=== PATIENT | female | born 1950 | race Caucasian/White ===

== ENCOUNTER 2017-03-31 16:47 | Emergency (ER) | payer OTHER ==
[~2017-03-31] VITALS: Ht 160 cm; Wt 110.0 kg
[~2017-03-31 16:47] MED LIST: CARDECDMS PO; GLUCTAB; HYCOS PO; HYZA100T2 PO; LEVO.2 PO; SIMV5TAB32 PO; VITA400C28 PO; VITA500T10 PO; ZITH250T PO
[2017-03-31 17:06] VITALS: BP 159/78; PULSE 85; RESP 16; TEMP 97.7; O2SAT 96
[2017-03-31] MEDS ORDERED: LEVO.2 PO (17:29)
[2017-03-31] MEDS ORDERED: PANT20TA2 PO (17:29)
[2017-03-31] MEDS ORDERED: SIMV40TA PO (17:29)
[2017-03-31] MEDS ORDERED: HYZA50TA2 PO (17:29)
[2017-03-31] MEDS ORDERED: METF500T PO (17:29)
--- NOTE | 2017-03-31 17:49 | PD ---
HPI Chief Complaint: Musculoskeletal Complaint Time Seen by Provider: 17:42 Travel History International Travel<30 days: No Contact w/Intl Traveler<30days: No Traveled to known affect area: No History of Present Illness HPI The 66-year-old female presents emergency department for evaluation of bilateral hand pain. [place] she tri[place] on an electric cord falling forward onto outstretched hands. Patient has pain bilaterally in the palms and across the metacarpals. She denies paresthesias or weakness in the extremities. Patient reports pain with flexion of the fingers. Relieved with rest. Symptom severity mild. PFSH Past Medical History Cancer: Yes (THYROID CA) High Cholesterol: Yes Diabetes: Yes Patient Takes Glucophage: Yes (04-09-17 1200) Diminished Hearing: No Hiatal Hernia: Yes Hypertension: Yes Immunizations Current: Yes Tetanus Vaccination: < 5 Years Influenza Vaccination: Yes ?: Not Menopausal: Yes Past Surgical History Cholecystectomy: Yes Other Surgery: Yes (; THYROID REMOVED. BREAST REDUCTION) Social History Alcohol Use: No Tobacco Use: No (QUIT SMOKINGFEB) Substance Use: No Allergies-Medications (Allergen,Severity, Reaction): Coded Allergies: penicillin G (Unverified Allergy, Unknown, 03/31/17) Uncoded Allergies: MANGOES (Allergy, Severe, ANAPHALAXIS, 09/09/09) Reported Meds & Prescriptions Reported Meds & Active Scripts Active Reported Synthroid (Levothyroxine Sodium) 200 Mcg Tab 200 Mcg PO DAILY Simvastatin 40 Mg Tab 40 Mg PO HS Pantoprazole (Pantoprazole Sodium) 20 Mg Tab 20 Mg PO DAILY Hyzaar (Losartan-Hydrochlorothiazide) 50-12.5 Mg Tab 1 Tab PO DAILY Metformin (Metformin HCl) 500 Mg Tab 500 Mg PO TIDPC With meals Review of Systems Except as stated in HPI: all other systems reviewed are Neg Physical Exam Narrative GENERAL: Well-nourished, well-developed patient. SKIN: Focused skin assessment warm/dry. Abrasions to bilateral palms HEAD: Normocephalic. EYES: No scleral icterus. No injection or drainage. NECK: Supple, trachea midline. No JVD or lymphadenopathy. CARDIOVASCULAR: Regular rate and rhythm without murmurs, gallops, or rubs. RESPIRATORY: Breath sounds equal bilaterally. No accessory muscle use. GASTROINTESTINAL: Abdomen soft, non-tender, nondistended. MUSCULOSKELETAL: No cyanosis, or edema. Bilateral hands superficial abrasions to the palms. No snuffbox tenderness or wrist pain. She has tenderness over the metacarpals. Full flexion and extension of the fingers. Brisk cap refill. Data Data Last Documented VS Vital Signs Date Time Temp Pulse Resp B/P (MAP) Pulse Ox O2 Delivery O2 Flow Rate FiO2 03/31/17 17:06 97.7 85 16 159/78 (105) 96 Orders Orders Hand, Complete ([id number]) (03/31/17 ) Hand, Complete ([id number]) (03/31/17 ) MDM Medical Decision Making Medical Screen Exam Complete: Yes Emergency Medical Condition: Yes Differential Diagnosis Metacarpal fracture versus abrasions versus contusion Narrative Course 66-year-old female presents emergency department for evaluation of bilateral hand pain status post fall from standing position prior to arrival. Patient has superficial abrasions to palms. She has tenderness over the metacarpals. The extremities are neurovascularly intact. Bilateral hand x-rays ordered and pending. Bilateral hand x-rays are negative for fracture. Patient we put into a left wrist splint for comfort and support. Instructed to follow-up with her PCP. Take [id number] Tylenol or Motrin as needed for pain. Diagnosis Primary Impression: Contusion Qualified Codes: S60.229A - Contusion of unspecified hand, initial encounter Referrals: Primary Care Physician Additional Instructions: Take [id number] Tylenol or Motrin as needed for pain. Where they wrist splint as needed for comfort. Follow-up with her primary doctor. Disposition: 01 DISCHARGE HOME Condition: Stable Hollie German Mar 31, 2017 17:49
--- NOTE | 2017-03-31 18:38 | RADRPT ---
EXAM DATE/TIME: 03/31/2017 18:16 [facility] COMPARISON: No previous studies available for comparison. INDICATIONS : Fell on hands, pain across palm MEDICAL HISTORY : Diabetes mellitus type II. SURGICAL HISTORY : None. ENCOUNTER: Initial ACUITY: 1 day PAIN SCORE: 7/10 LOCATION: Left hand FINDINGS: Three view examination of the left hand demonstrates no soft tissue swelling, dislocation, or fractur e. The carpal bones appear intact. The interphalangeal and metacarpophalangeal joints are intact. Bony mineralization is normal. CONCLUSION: Negative exam. Edwin Nino MD on March 31, 2017 at 18:36 Board Certified Radiologist. This report was verified electronically.
--- NOTE | 2017-03-31 18:39 | RADRPT ---
EXAM DATE/TIME: 03/31/2017 18:21 [facility] COMPARISON: No previous studies available for comparison. INDICATIONS : Fell today on hands, pain across palm MEDICAL HISTORY : Diabetes mellitus type II. SURGICAL HISTORY : None. ENCOUNTER: Initial ACUITY: 1 day PAIN SCORE: 5/10 LOCATION: Right hand FINDINGS: Three view examination of the right hand demonstrates no soft tissue swelling, dislocation, or fractu re. The carpal bones appear intact. The interphalangeal and metacarpophalangeal joints are intact. Bony mineralization is normal. CONCLUSION: Negative exam. Edwin Nino MD on March 31, 2017 at 18:37 Board Certified Radiologist. This report was verified electronically.
== END 2017-03-31 19:27 | disposition home or self-care (01) ==
LOC: PHEFT 16:47
DX: S60.222A Contusion of left hand, initial encounter (principal); S60.221A Contusion of right hand, initial encounter; W01.0XXA Fall on same level from slipping, tripping and stumbling without subsequent striking against object, initial encounter; Z85.850 Personal history of malignant neoplasm of thyroid; E78.00 Pure hypercholesterolemia, unspecified; E11.9 Type 2 diabetes mellitus without complications; I10 Essential (primary) hypertension; K44.9 Diaphragmatic hernia without obstruction or gangrene; Z87.891 Personal history of nicotine dependence
CPT/HCPCS: 73130; 99283